=== PATIENT | male | born 1985 | race Caucasian/White ===

== ENCOUNTER → 2020-11-19 09:37 | Outpatient (BNVA) | payer OTHER, SELFPAY | PROVIDERS: Visit Provider Family Medicine Adult Medicine | DX: E66.01 Morbid (severe) obesity due to excess calories (principal); R03.0 Elevated blood-pressure reading, without diagnosis of hypertension; Z68.41 Body mass index [BMI] 40.0-44.9, adult; Z13.6 Encounter for screening for cardiovascular disorders | CPT/HCPCS: 80053; 84443; 85025 ==

== ENCOUNTER → 2021-05-04 14:05 | Outpatient (BNVA) | payer OTHER, SELFPAY | PROVIDERS: PCP Family Medicine Adult Medicine; Visit Provider Nurse Practitioner Family | DX: Z20.822 Contact with and (suspected) exposure to COVID-19 (principal) | CPT/HCPCS: 87426; 87635 ==

== ENCOUNTER → 2022-03-26 10:36 | Outpatient (BNVA) | payer OTHER, SELFPAY | PROVIDERS: PCP Family Medicine Adult Medicine; Visit Provider Nurse Practitioner Family | DX: R68.89 Other general symptoms and signs (principal); B34.9 Viral infection, unspecified | CPT/HCPCS: 87400 ==

== ENCOUNTER → 2022-12-20 09:31 | Outpatient (BNVA) | payer OTHER, SELFPAY | PROVIDERS: PCP Family Medicine Adult Medicine; Visit Provider Nurse Practitioner Family | DX: M25.522 Pain in left elbow (principal) | CPT/HCPCS: 73080 ==

== ENCOUNTER 2023-02-22 07:32 | Outpatient (CLI) | payer OTHER, SELFPAY ==
--- NOTE | 2023-02-22 08:00 | MR_ITS ---
WS: [id number] EXAMINATION: MR elbow LT wo con* [id number] ORDER DATE: 02/22/2023 7:59 AM COMPARISON: None. HISTORY: Elbow pain CONTRAST: None. TECHNIQUE: Axial T1, axial T2 fat sat, coronal T1, coronal proton density fat sat, coronal STIR, sagi ttal proton density fat sat, and axial fat sat 3D performed. FINDINGS: Partial tear involving the distal biceps brachii tendon with fluid along the tendon sheath extending to the radial tuberosity. Increased signal involving the distal tendon compatible with tendinopathy. Fluid signal abnormality involving the distal tendon consistent with partial tear. Intact fibers at t he radial tuberosity best seen on the coronal imaging. No tendon retraction. Brachialis appears intact. No significant bone marrow or intramuscular edema. Ulnar and radial collat eral ligaments appear intact. Normal radial head. Normal flexor and extensor tendon complexes. Distal triceps tendon appears intact. 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 No subchondral edema. IMPRESSION: 1. Tendinopathy with partial tear involving the distal biceps tendon. Fluid along the tendon sheath extending to the radial tuberosity. Increased signal and tendinopathy extends to the insertion with i ntact fibers. No tendon retraction. 2. 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 No subchondral edema. 3. No other acute findings.
== END 2023-02-22 07:33 | disposition home or self-care (01) ==
LOC: RAD 07:32
PROVIDERS: PCP Family Medicine Adult Medicine; Visit Provider Student in an Organized Health Care Education/Training Program
DX: M94.222 Chondromalacia, left elbow (principal); S46.212A Strain of muscle, fascia and tendon of other parts of biceps, left arm, initial encounter; X58.XXXA Exposure to other specified factors, initial encounter; M25.522 Pain in left elbow
CPT/HCPCS: 73221